=== PATIENT | female | born 1985 | race Caucasian/White ===

== ENCOUNTER 2019-09-20 03:58 | Emergency (ER) | payer BC, SELFPAY ==
[2019-09-20] MEDS ORDERED: Sodium Chloride 0.9% 1,000 ML IV ONE (04:12)
[2019-09-20] MEDS ORDERED: Ketorolac 30 MG/ML SDV IVPUSH ONE (04:35)
[2019-09-20] MEDS ORDERED: HYDROmorphone 1 MG/ML Syringe IVPUSH ONE ×2 (04:35→07:07)
[2019-09-20 04:51] LABS: ANION GAP 12.2 mmol/L (5-15); CHLORIDE,CL 102 mmol/L (98-115); SODIUM,NA 139 mmol/L (136-145)
[2019-09-20] MEDS ORDERED: Iopamidol 755 Mg/ML 100 ML Bottle IV ONE (04:58)
[2019-09-20] MEDS ORDERED: Sodium Chloride 0.9% 50 ML IV ONE (04:58)
--- NOTE | 2019-09-20 05:00 | EDM.PDOC ---
ED HPI GENERAL MEDICAL PROBLEM - General Chief Complaint: General Stated Complaint: Left flank pain Time Seen by Provider: 09/20/19 04:31 Source of Information: Reports: Patient History Limitations: Reports: No Limitations - History of Present Illness INITIAL COMMENTS - FREE TEXT/NARRATIVE: Patient presents with severe left abdominal and flank pain that started around 0230 this AM. She had a large emesis here in ER but isn't nauseated now; she thinks it was from the pain. She has had UTIs with kidney infections in the past but it has been a few years. She hasn't noticed dysuria but didn't usually get that with her UTIs either. No history of kidney stones. Left Flank Pain Score (Numeric/FACES): 3 - Related Data Allergies Allergy/AdvReac Type Severity Reaction Status Date / Time amoxicillin Allergy Rash Verified 09/20/19 04:36 Penicillins Allergy Rash Verified 09/20/19 04:36 Home Meds: Home Meds Levothyroxine 200 mcg PO ACBRK 05/06/13 [History] Diclofenac Sodium 75 mg PO BID 09/20/19 [History] Escitalopram Oxalate 10 mg PO DAILY 09/20/19 [History] Levothyroxine 75 mcg PO ACBRK 09/20/19 [History] Mupirocin Oint [Bactroban Oint] 1 applic TOP ASDIRECTED PRN 09/20/19 [History] buPROPion HCL [Bupropion Xl] 150 mg PO DAILY 09/20/19 [History] ED ROS GENERAL - Review of Systems Review Of Systems: See Below Constitutional: Denies: Fever, Chills, Malaise, Weakness HEENT: Denies: Ear Pain, Throat Pain, Vision Change Respiratory: Denies: Shortness of Breath, Cough Cardiovascular: Denies: Chest Pain, Lightheadedness, Syncope GI/Abdominal: Reports: Abdominal Pain, Vomiting (once, brief). Denies: Diarrhea , Nausea : Reports: Flank Pain. Denies: Dysuria Musculoskeletal: Denies: Neck Pain, Shoulder Pain, Arm Pain, Back Pain, Hand Pain Skin: Denies: Cyanosis, Jaundice, Mottled, Pallor, Diaphoresis Neurological: Denies: Confusion, Dizziness, Headache, Seizure, Syncope, Trouble Speaking, Difficulty Walking Psychiatric: Denies: Agitation, Anxiety, Confusion ED EXAM, GENERAL - Physical Exam Exam: See Below Exam Limited By: No Limitations General Appearance: Alert, WD/WN, No Apparent Distress Eye Exam: Bilateral Eye: EOMI, Normal Inspection, PERRL Ears: Normal External Exam, Hearing Grossly Normal Nose: Normal Inspection, No Blood Throat/Mouth: Normal Inspection, Normal Lips, Normal Voice, No Airway Compromise Head: Atraumatic, Normocephalic Neck: Normal Inspection, Full Range of Motion Respiratory/Chest: No Respiratory Distress, Lungs Clear, Normal Breath Sounds, No Accessory Muscle Use Cardiovascular: Regular Rate, Rhythm, No Murmur GI/Abdominal: Normal Bowel Sounds, Soft, No Organomegaly, Tender (generally across left abdomen without definite focal tenderness to palpation; also in left flank but not readily reproducible with palpation) Back Exam: Normal Inspection, Full Range of Motion, CVA Tenderness (L). No: CVA Tenderness (R) Extremities: Normal Inspection, Normal Range of Motion Neurological: Alert, Oriented, Normal Cognition, No Motor/Sensory Deficits Psychiatric: Normal Affect, Normal Mood Skin Exam: Warm, Dry, Intact, Normal Color, No Rash Course - Vital Signs Last Recorded V/S: Last Vital Signs Temp 96.2 F L 09/20/19 04:53 Pulse 93 09/20/19 04:53 Resp 20 09/20/19 04:53 BP 140/75 09/20/19 04:53 Pulse Ox 99 09/20/19 04:53 - Orders/Labs/Meds Orders: Active Orders 24 hr Category Date Time Status CULTURE URINE [RM] Stat Lab 09/20/19 04:11 Received Labs: Laboratory Tests 09/20/19 09/20/19 09/20/19 Range/Units 04:11 04:20 04:20 WBC 15.64 H (5.00-10.00) 10^3/uL RBC 5.04 (3.80-5.50) 10^6/uL Hgb 14.1 (12.0-16.0) g/dL Hct 43.2 (37.0-47.0) % MCV 85.7 D (82.0-92.0) fL MCH 28.0 (27.0-31.0) pg MCHC 32.6 (32.0-36.0) g/dL RDW 12.4 (11.5-14.5) % Plt Count 323 (150-400) 10^3/uL MPV 9.9 (7.4-10.4) fL Immature Gran % (Auto) 0.2 (0.0-5.0) % Neut % (Auto) 66.7 (50.0-70.0) % Lymph % (Auto) 24.6 (20.0-40.0) % [place] % (Auto) 6.3 (2.0-8.0) % Eos % (Auto) 2.0 (1.0-3.0) % Baso % (Auto) 0.2 (0.0-1.0) % Neut # (Auto) 10.45 H (2.50-7.00) 10^3/uL Lymph # (Auto) 3.84 (1.00-4.00) 10^3/uL [place] # (Auto) 0.98 H (0.10-0.80) 10^3/uL Eos # (Auto) 0.31 H (0.10-0.30) 10^3/uL Baso # (Auto) 0.03 (0.00-0.10) 10^3/uL Immature Gran # (Auto) 0.03 (0.00-0.50) 10^3/uL Sodium 139 (136-145) mmol/L Potassium 3.9 (3.3-5.3) mmol/L Chloride 102 (98-115) mmol/L Carbon Dioxide 28.7 (21.0-32.0) mmol/L Anion Gap 12.2 (5-15) mmol/L BUN 16 (6-25) mg/dL Creatinine 0.67 (0.51-1.17) mg/dL Est Cr Clr Drug Dosing TNP Estimated GFR (MDRD) > 60 mL/min Glucose 124 H (75 - 99) mg/dL Calcium 8.6 L (8.7-10.3) mg/dL Total Bilirubin 0.3 (0.2-1.0) mg/dL AST 14 L (15-37) U/L ALT 28 (12-78) U/L Alkaline Phosphatase 99 (46-116) IU/L Total Protein 7.4 (6.4-8.2) g/dL Albumin 3.54 (3.00-4.80) g/dL Specimen Type . Urine Color Light yellow (YELLOW) Urine Appearance Turbid H (CLEAR) Urine pH 6.5 (5.0-9.0) Ur Specific [place] >= 1.030 (1.005-1.030) Urine Protein >=300 H (NEGATIVE) mg/dL Urine Glucose (UA) Negative (NEGATIVE) mg/dL Urine Ketones Negative (NEGATIVE) mg/dL Urine Occult Blood Large H (NEGATIVE) Urine Nitrite Negative (NEGATIVE) Urine Bilirubin Negative (NEGATIVE) Urine Urobilinogen 0.2 (0.2-1.0) E.U./dL Ur Leukocyte Esterase Trace H (NEGATIVE) Urine RBC >100 H (0-5) /HPF Urine WBC 50-75 H (0-5) /HPF Ur Epithelial Cells Few /LPF Amorphous Sediment Few (0/HPF) /HPF Urine Bacteria Many H (NONE TO FEW) /HPF Meds: Medications Discontinued Medications Generic Name Dose Route Start Last Admin Trade Name Freq PRN Reason Stop Dose Admin Hydrocodone Bitart/Acetaminophen 2 tab 09/20/19 06:58 09/20/19 07:17 [place] 325-10 Mg PO 09/20/19 06:59 Not Given ONETIME ONE Hydromorphone HCl 1 mg 09/20/19 04:35 09/20/19 04:39 Dilaudid IVPUSH 09/20/19 04:36 1 mg ONETIME ONE Administration Hydromorphone HCl 1 mg 09/20/19 07:07 09/20/19 07:19 Dilaudid IVPUSH 09/20/19 07:08 1 mg ONETIME ONE Administration Sodium Chloride 1,000 mls @ 999 mls/hr 09/20/19 04:12 09/20/19 04:29 Normal Saline IV 09/20/19 05:12 999 mls/hr .BOLUS ONE Administration Sodium Chloride 50 mls @ 200 mls/min 09/20/19 04:58 09/20/19 05:38 Normal Saline IV 09/20/19 04:59 200 mls/min ONETIME ONE Administration Iopamidol 100 ml 09/20/19 04:58 09/20/19 05:38 Isovue-370 (76%) IV 09/20/19 04:59 75 ml ONETIME ONE Administration Ketorolac Tromethamine 30 mg 09/20/19 04:35 09/20/19 04:47 Toradol IVPUSH 09/20/19 04:36 30 mg ONETIME ONE Administration Levofloxacin 750 mg 09/20/19 06:58 09/20/19 07:15 Levaquin PO 09/20/19 06:59 750 mg ONETIME ONE Administration - Re-Assessments/Exams Free Text/Narrative Re-Assessment/Exam: 09/20/19 07:08 Patient says pain was originally 8-9/10 and came down to 2-3 after Dilaudid and Toradol. Now it is up to 4 again. WBC is elevated. CT shows "acute left pyelo-ureteritis" and nonobstructing left nephrolithiasis. Discussed findings and treatment plan with patient. Giving dose of Levaquin 750 mg now and Rx for 6 more days. Giving another dose of dilaudid now as well. Discharged in stable condition. Departure - Departure Time of Disposition: 07:04 Disposition: Home, Self-Care 01 Condition: Good Clinical Impression: Acute pyelonephritis - Discharge Information Referrals: Nava Mendoza MD [Primary Care Provider] - Forms: ED Department Discharge Additional Instructions: Drink 8 cups of water daily. Take the antibiotic as directed. You can use Ibuprofen 600 mg three times a day as needed for pain control but wait until this evening to start since you had Toradol in ER. Follow up with Dr. eCrda for recheck on Monday as scheduled. If significantly worsening recheck sooner. Sepsis Event Note - Focused Exam Vital Signs: Vital Signs Temp Pulse Resp BP Pulse Ox 09/20/19 04:53 96.2 F L 93 20 140/75 99 Date Exam was Performed: 09/20/19 Time Exam was Performed: 08:44 - My Orders Last 24 Hours: My Active Orders 09/20/19 04:11 CULTURE URINE [RM] Stat - Assessment/Plan Last 24 Hours: My Active Orders 09/20/19 04:11 CULTURE URINE [RM] Stat
[2019-09-20] MEDS ORDERED: Levofloxacin 500 MG Tab PO ONE (06:58)
[2019-09-20] MEDS ORDERED: Acetaminophen/HYDROcodone 325-10 MG Tab PO ONE (06:58)
--- NOTE | 2019-09-20 07:52 | CT ---
[id number] CT/CT Abdomen Pelvis WWO IV Exam: CT Abdomen Pelvis WWO IV Clinical Data: LEFT FLANK PAIN HEMATURIA COMPARISON: NO PREVIOUS SIMILAR EXAM IS AVAILABLE FINDINGS: A 5 mm lower pole left renal calculus is seen. There is no hydronephrosis The left ureter is slightly dilated There is an IUD in place The gallbladder has been removed. There is a fatty appearance of the liver. A 2.7 cm left-sided parapelvic cyst is seen There appears to be a small left ovarian cyst The pelvis otherwise shows no mass or adenopathy. The appendix is not well seen There is no evidence of appendicitis The aorta, adrenals, right kidney, pancreas, and spleen are unremarkable IMPRESSION: Left-sided nephrolithiasis No hydronephrosis Slight dilatation of left ureter Possibility of a recently passed calculus is considered Jose Mercedes MD 09/20/19 0751 Thank you for allowing us to participate in the care of your patient.
== END 2019-09-20 07:32 | disposition home or self-care (01) ==
LOC: KA.ED 03:58
DX: N10 Acute pyelonephritis (principal); Z88.1 Allergy status to other antibiotic agents; Z88.0 Allergy status to penicillin; Z79.899 Other long term (current) drug therapy
CPT/HCPCS: 36415; 74178; 80053; 81001; 85025; 87086; 96361; 96374; 96375; 96376; 99284; A9270; J1170; J1885; J7030; J7050; Q9967; 87077; 87186

== ENCOUNTER 2020-06-23 09:22 | Emergency (ER) | payer BC ==
--- NOTE | 2020-06-23 09:51 | EDM.PDOC ---
ED HPI GENERAL MEDICAL PROBLEM - General Chief Complaint: Back Pain or Injury Stated Complaint: LEFT LEG PAIN Time Seen by Provider: 06/23/20 09:40 Source of Information: Reports: Patient History Limitations: Reports: No Limitations - History of Present Illness INITIAL COMMENTS - FREE TEXT/NARRATIVE: 34 YO WF PRESENTS TO ER COMPLAINING OF LOW BACK PAIN WHICH BEGAN AFTER FALL 10 DAYS AGO. PT REPORTS SHE SLIPPED ON THE ICE AND LANDED ON HER BUTTOCKS. PT REPORTS PAIN WAS MANAGEABLE UNTIL THIS PAST WEEKEND WHEN IT BECAME MORE SEVERE. PT SAW CHIROPRACTOR YESTERDAY BUT STATES IT WAS AN INITIAL EVALUATION AND NOT MUCH TREATMENT WAS GIVEN. PT DENIES BOWEL OR BLADDER DYSFUNCTION, NO SADDLE ANESTHESIA. PT REPORTS PAIN RADIATES TO LEFT BUTTOCKS AND DOWN LEFT LEG. PT DENIES WEAKNESS, BUT STATES WHEN SHE SITS FOR LONG PERIODS OF TIME THE PAIN BECOMES MORE SEVERE AND SHE HAS TO GET UP TO GET ANY RELIEF. PT DENIES FEVER/CHILLS, NO DYSURIA OR URINARY FREQUENCY. Onset Date: 06/12/20 Duration: Day(s): (10) Location: Reports: Back, Lower Extremity, Left Quality: Reports: Ache Severity: Moderate Improves with: Reports: Rest Worsens with: Reports: Movement Associated Symptoms: Reports: No Other Symptoms. Denies: Rash, Weakness lower back pain Pain Score (Numeric/FACES): 10 - Related Data Allergies Allergy/AdvReac Type Severity Reaction Status Date / Time amoxicillin Allergy Rash Verified 06/23/20 09:50 Penicillins Allergy Rash Verified 06/23/20 09:50 Home Meds: Home Meds Levothyroxine 200 mcg PO ACBRK 05/06/13 [History] Diclofenac Sodium 75 mg PO BID 09/20/19 [History] Escitalopram Oxalate 10 mg PO DAILY 09/20/19 [History] Levothyroxine 75 mcg PO ACBRK 09/20/19 [History] Mupirocin Oint [Bactroban Oint] 1 applic TOP ASDIRECTED PRN 09/20/19 [History] buPROPion HCL [Bupropion Xl] 150 mg PO DAILY 09/20/19 [History] Cholecalciferol (Vitamin D3) [Vitamin D] 5,000 unit PO WEEKLY 06/23/20 [History] Cyclobenzaprine [Flexeril] 10 mg PO TID PRN #15 tab 06/23/20 [Rx] Hydrocodone/Acetaminophen [Hydrocodone-Acetamin 10-325 mg] 1 each PO Q6H PRN #12 tablet 06/23/20 [Rx] predniSONE [Prednisone] 20 mg PO DAILY #15 tablet 06/23/20 [Rx] Past Medical History Genitourinary History: Reports: UTI, Recurrent Psychiatric History: Reports: Anxiety, Depression Endocrine/Metabolic History: Reports: Hypothyroidism, Obesity/BMI 30+ Dermatologic History: Reports: Eczema - Past Surgical History GI Surgical History: Reports: Cholecystectomy Social & Family History - Caffeine Use Caffeine Use: Reports: Energy Drinks ED ROS GENERAL - Review of Systems Review Of Systems: See Below Constitutional: Reports: No Symptoms HEENT: Reports: No Symptoms Respiratory: Reports: No Symptoms Cardiovascular: Reports: No Symptoms Endocrine: Reports: No Symptoms GI/Abdominal: Reports: No Symptoms : Reports: No Symptoms Musculoskeletal: Reports: Back Pain, Leg Pain Skin: Reports: No Symptoms Neurological: Reports: Difficulty Walking Psychiatric: Reports: No Symptoms Hematologic/Lymphatic: Reports: No Symptoms Immunologic: Reports: No Symptoms ED EXAM,LOWER BACK PAIN/INJURY - Physical Exam Exam: See Below Exam Limited By: No Limitations General Appearance: Alert, WD/WN, Mild Distress Head: Atraumatic, Normocephalic Neck: Normal Inspection, Supple, Non-Tender, Full Range of Motion Respiratory/Chest: No Respiratory Distress, Lungs Clear, Normal Breath Sounds, No Accessory Muscle Use, Chest Non-Tender Cardiovascular: Normal Peripheral Pulses, Regular Rate, Rhythm, No Edema, No Gallop, No JVD, No Murmur, No Rub GI/Abdominal: Normal Bowel Sounds, Soft, Non-Tender, No Organomegaly, No Distention, No Abnormal Bruit, No Mass Back Exam: Muscle Spasm, Paraspinal Tenderness Extremities: Normal Inspection, Normal Range of Motion, No Pedal Edema, Normal Capillary Refill, Leg Pain Neurological: Alert, Normal Mood/Affect, Normal Dorsiflexion, CN II-XII Intact, Normal Plantar Flexion, Normal Gait, Normal Reflexes, No Motor/Sensory Deficits, Oriented x 3, Straight Leg Raise (L) Psychiatric: Normal Affect, Normal Mood Skin Exam: Warm, Dry, Intact, Normal Color, No Rash Lymphatic: No Adenopathy Course - Vital Signs Last Recorded V/S: Last Vital Signs Temp 96.9 F 06/23/20 09:30 Pulse 84 06/23/20 09:30 Resp 30 H 06/23/20 09:30 BP 120/85 06/23/20 09:30 Pulse Ox 97 06/23/20 09:30 - Orders/Labs/Meds Labs: Laboratory Tests 06/23/20 06/23/20 Range/Units 09:42 09:42 Specimen Type Urincc Urine Color Yellow (YELLOW) Urine Appearance Clear (CLEAR) Urine pH 8.0 (5.0-9.0) Ur Specific [place] 1.015 (1.005-1.030) Urine Protein Negative (NEGATIVE) mg/dL Urine Glucose (UA) Negative (NEGATIVE) mg/dL Urine Ketones Negative (NEGATIVE) mg/dL Urine Occult Blood Negative (NEGATIVE) Urine Nitrite Negative (NEGATIVE) Urine Bilirubin Negative (NEGATIVE) Urine Urobilinogen 0.2 (0.2-1.0) E.U./dL Ur Leukocyte Esterase Negative (NEGATIVE) Urine HCG, Qual Negative (NEGATIVE) - Radiology Interpretation Free Text/Narrative:: lumbar spine-NAD - Re-Assessments/Exams Free Text/Narrative Re-Assessment/Exam: 06/23/20 11:16 PT REPORTS IMPROVEMENT AFTER PAIN MEDICATION. PT INSTRUCTED TO FOLLOW UP IN CLINIC FOR RECHECK IF NO IMPROVEMENT NEXT 3-5 DAYS. RECOMMENDING PHYSICAL THERAPY AND POSSIBLE ADDITIONAL IMAGING NEEDED. Departure - Departure Time of Disposition: 11:17 Disposition: Home, Self-Care 01 Condition: Good Clinical Impression: Sciatica Qualifiers: Laterality: left Qualified Code(s): M54.32 - Sciatica, left side - Discharge Information Prescriptions: Cyclobenzaprine [Flexeril] 10 mg PO TID PRN #15 tab PRN Reason: Muscle Spasm Hydrocodone/Acetaminophen [Hydrocodone-Acetamin 10-325 mg] 1 each PO Q6H PRN #12 tablet PRN Reason: Pain predniSONE [Prednisone] 20 mg PO DAILY #15 tablet Instructions: Sciatica Referrals: Nava Mendoza MD [Primary Care Provider] - Forms: ED Department Discharge Additional Instructions: 1. DISCHARGE HOME 2. HYDROCODONE 10/325 #12 1 TABLET EVERY 6 HOURS NEEDED FOR PAIN 3. FLEXERIL 10MG #15 1 TABLET EVERY 8 HOURS NEEDED FOR MUSCLE SPASMS 4. PREDNISONE (3) 20MG TABLETS DAILY WITH FOOD X 5 DAYS 5. FOLLOW UP WITH PCP IF NO IMPROVEMENT NEXT 5-7 DAYS 6. RETURN TO ER FOR WORSENING SYMPTOMS Sepsis Event Note (ED) - Evaluation Sepsis Screening Result: No Definite Risk - Focused Exam Vital Signs: Vital Signs Temp Pulse Resp BP Pulse Ox 06/23/20 09:30 96.9 F 84 30 H 120/85 97 - Assessment/Plan Assessment:: 1. ACUTE SCIATICA Plan: 1. DISCHARGE HOME 2. HYDROCODONE 10/325 #12 1 TABLET EVERY 6 HOURS NEEDED FOR PAIN 3. FLEXERIL 10MG #15 1 TABLET EVERY 8 HOURS NEEDED FOR MUSCLE SPASMS 4. PREDNISONE (3) 20MG TABLETS DAILY WITH FOOD X 5 DAYS 5. FOLLOW UP WITH PCP IF NO IMPROVEMENT NEXT 5-7 DAYS 6. RETURN TO ER FOR WORSENING SYMPTOMS
[2020-06-23] MEDS ORDERED: Ketorolac 30 MG/ML SDV IVPUSH ONE (09:57)
[2020-06-23] MEDS ORDERED: methylPREDNISolone Sodium Succinate 125 MG/2 ML SDV IVPUSH ONE (09:57)
--- NOTE | 2020-06-23 10:14 | CR ---
[id number] RAD/RAD Lumbar Spine 2-3V EXAM: RAD Lumbar Spine 2-3V INDICATION: LOWER BACK INJURY. COMPARISON: None. DISCUSSION: There is slight convex left curvature centered in the midlumbar spine. The vertebral bodies are otherwise normal in height and alignment with no fracture identified. Mild lumbar spondylosis is most significant at L5-S1. Transitional anatomy at the lumbosacral junction. Intrauterine device projecting over the pelvis. IMPRESSION: 1. No acute findings. Montana Loera MD 06/23/20 1012 Thank you for allowing us to participate in the care of your patient.
[2020-06-23] MEDS ORDERED: HYDROmorphone 1 MG/ML Syringe IVPUSH ONE (10:35)
== END 2020-06-23 11:26 | disposition home or self-care (01) ==
LOC: KA.ED 09:22
DX: M54.42 Lumbago with sciatica, left side (principal); E03.9 Hypothyroidism, unspecified; E66.9 Obesity, unspecified; Z68.41 Body mass index [BMI] 40.0-44.9, adult; Z88.0 Allergy status to penicillin; Z79.899 Other long term (current) drug therapy
CPT/HCPCS: 72100; 81003; 81025; 96374; 96375; 99283; 99283-25; J1170; J1885; J2930; J3360

== ENCOUNTER 2020-06-26 10:36 | Emergency (ER) | payer BC ==
[2020-06-26] MEDS ORDERED: Ketorolac 60 MG/2 ML SDV ONE (11:02)
[2020-06-26] MEDS ORDERED: Ketorolac 60 MG/2 ML SDV IM ONE (11:08)
[2020-06-26] MEDS ORDERED: HYDROmorphone 1 MG/ML Syringe IVPUSH ONE ×2 (11:36→11:44)
[2020-06-26] MEDS ORDERED: Ondansetron 4 MG/2 ML SDV IVPUSH ONE (11:51)
[2020-06-26] MEDS ORDERED: Ondansetron 4 MG/2 ML SDV ONE (11:54)
--- NOTE | 2020-06-26 11:54 | EDM.PDOC ---
ED HPI GENERAL MEDICAL PROBLEM - General Chief Complaint: Back Pain or Injury Stated Complaint: PROBLEMS WITH LEG Time Seen by Provider: 06/26/20 10:45 Source of Information: Reports: Patient, Family () History Limitations: Reports: No Limitations - History of Present Illness INITIAL COMMENTS - FREE TEXT/NARRATIVE: 34-year-old female presents to the emergency room with intractable low back and left radicular leg pain. She was seen in the emergency room this past Monday for the same occurrence. She has not had relief with NSAIDs, prednisone, oral pain medication which includes hydrocodone. She has been taken a muscle relaxer. She is seen a chiropractor 3 times since the onset of her symptoms 1 week ago last . Patient reports that she has fallen on the ice and then her symptoms began soon after. Her pain is not controlled. She was seen by her chiropractor this morning and recommended that she return back to the emergency room for further work-up and evaluation. She denies any saddle paresthesias or loss of bowel or bladder control. She complains of the pain in the left leg down the L5 dermatome. Rates her pain a 10 out of 10. Onset: Gradual Onset Date: 06/18/20 Duration: Day(s):, Getting Worse Location: Reports: Lower Extremity, Left Quality: Reports: Burning, Stabbing Severity: Severe Improves with: Reports: None Worsens with: Reports: Movement Associated Symptoms: Reports: Weakness (left leg) Treatments VALVE LAPPER: Reports: Acetaminophen, NSAIDS, Other Medication(s) (steroids,flexeril, Hydrocodone) Left Lower Back Pain Score (Numeric/FACES): 10 - Related Data Allergies Allergy/AdvReac Type Severity Reaction Status Date / Time amoxicillin Allergy Rash Verified 06/26/20 10:45 Penicillins Allergy Rash Verified 06/26/20 10:45 Home Meds: Home Meds Levothyroxine 200 mcg PO ACBRK 05/06/13 [History] Diclofenac Sodium 75 mg PO BID 09/20/19 [History] Escitalopram Oxalate 10 mg PO DAILY 09/20/19 [History] Levothyroxine 75 mcg PO ACBRK 09/20/19 [History] Mupirocin Oint [Bactroban Oint] 1 applic TOP ASDIRECTED PRN 09/20/19 [History] buPROPion HCL [Bupropion Xl] 150 mg PO DAILY 09/20/19 [History] Cholecalciferol (Vitamin D3) [Vitamin D] 5,000 unit PO WEEKLY 06/23/20 [History] Cyclobenzaprine [Flexeril] 10 mg PO TID PRN #15 tab 06/23/20 [Rx] Hydrocodone/Acetaminophen [Hydrocodone-Acetamin 10-325 mg] 1 each PO Q6H PRN #12 tablet 06/23/20 [Rx] predniSONE [Prednisone] 20 mg PO DAILY #15 tablet 06/23/20 [Rx] Past Medical History Genitourinary History: Reports: UTI, Recurrent Musculoskeletal History: Reports: Arthritis, Other (See Below) Other Musculoskeletal History: Arthritis in the knees Psychiatric History: Reports: Anxiety, Depression Endocrine/Metabolic History: Reports: Hypothyroidism, Obesity/BMI 30+, Vitamin D Deficiency Dermatologic History: Reports: Eczema - Past Surgical History GI Surgical History: Reports: Cholecystectomy Social & Family History - Family History Family Medical History: No Pertinent Family History - Tobacco Use Tobacco Use Status *Q: Never Tobacco User - Caffeine Use Caffeine Use: Reports: None - Recreational Drug Use Recreational Drug Use: No ED ROS GENERAL - Review of Systems Review Of Systems: See Below Constitutional: Reports: No Symptoms HEENT: Reports: No Symptoms Respiratory: Reports: No Symptoms Cardiovascular: Reports: No Symptoms Endocrine: Reports: No Symptoms GI/Abdominal: Reports: No Symptoms : Reports: No Symptoms Musculoskeletal: Reports: Back Pain, Leg Pain (left L5 radicular) Skin: Reports: No Symptoms Neurological: Reports: Paresthesia, Difficulty Walking, Weakness (left leg), Gait Disturbance Psychiatric: Reports: Anxiety, Depression Hematologic/Lymphatic: Reports: No Symptoms Immunologic: Reports: No Symptoms ED EXAM,LOWER BACK PAIN/INJURY - Physical Exam Exam: See Below Exam Limited By: No Limitations General Appearance: Alert, Severe Distress, Obese Ears: Hearing Grossly Normal Nose: Normal Inspection Throat/Mouth: Normal Voice, No Airway Compromise Head: Atraumatic, Normocephalic Neck: Normal Inspection, Supple, Non-Tender Respiratory/Chest: No Respiratory Distress Back Exam: Muscle Spasm, Paraspinal Tenderness Extremities: Normal Inspection, Leg Pain (left leg) Neurological: Alert, Normal Dorsiflexion, CN II-XII Intact, Normal Plantar Flexion, Normal Reflexes, Oriented x 3, Extensor Response to Pain, Abnormal Sensation (left L5 dermatome), Straight Leg Raise (L), Straight Leg Raise (R) (contralateral). No: Babinski, Saddle Anesthesia DTR - Lower Extremities: 1+: Ankle (R), Ankle (L), 2+: Knee (R), Knee (L) Psychiatric: Tearful Skin Exam: Warm, Dry, Intact, Normal Color, No Rash Lymphatic: No Adenopathy Course - Vital Signs Last Recorded V/S: Last Vital Signs Temp 96.5 F L 06/26/20 10:47 Pulse 91 06/26/20 10:47 Resp 36 H 06/26/20 10:47 BP 126/71 06/26/20 10:47 Pulse Ox 99 06/26/20 10:47 - Orders/Labs/Meds Orders: Active Orders 24 hr Category Date Time Status Peripheral IV Care [RC] . DIRECTED Care 06/26/20 11:58 Active Sodium Chloride 0.9% [Saline Flush] Med 06/26/20 11:58 Active 10 ml FLUSH Q8HR PRN Peripheral IV Insertion Adult [OM.PC] Routine Oth 06/26/20 11:58 Ordered - Re-Assessments/Exams Free Text/Narrative Re-Assessment/Exam: Patient was given 30 mg IM Toradol without relief of her symptoms. IV was placed in her left wrist and 1 mg of IV Dilaudid was given. IV Zofran 4 mg for nausea also given Free Text/Narrative Re-Assessment/Exam: 06/26/20 12:41 Currently is rating her pain a 7 out of 10 at rest if she does not move. She will be given another 1 mg of IV Dilaudid. Departure - Departure Time of Disposition: 12:42 Disposition: DC/Tfer to Acute Hospital 02 Condition: Fair Clinical Impression: Intractable back pain, Radicular pain of left lower extremity - Discharge Information *PRESCRIPTION DRUG MONITORING PROGRAM REVIEWED*: Yes *COPY OF PRESCRIPTION DRUG MONITORING REPORT IN PATIENT DEJA: Yes Instructions: Pinched Nerve, Radicular Pain, Acute Back Pain, Adult Referrals: Nava Mendoza MD [Primary Care Provider] - Forms: ED Department Discharge Sepsis Event Note (ED) - Evaluation Sepsis Screening Result: No Definite Risk - Focused Exam Vital Signs: Vital Signs Temp Pulse Resp BP Pulse Ox 06/26/20 10:47 96.5 F L 91 36 H 126/71 99 - My Orders Last 24 Hours: My Active Orders 06/26/20 11:58 Peripheral IV Care [RC] . DIRECTED Sodium Chloride 0.9% [Saline Flush] 10 ml FLUSH Q8HR PRN Peripheral IV Insertion Adult [OM.PC] Routine - Assessment/Plan Last 24 Hours: My Active Orders 06/26/20 11:58 Peripheral IV Care [RC] . DIRECTED Sodium Chloride 0.9% [Saline Flush] 10 ml FLUSH Q8HR PRN Peripheral IV Insertion Adult [OM.PC] Routine Assessment:: Intractable low back and left radicular leg pain Plan: Patient will require IV pain medication for intractable low back and left radicular leg pain. She will also need an MRI of her lumbar spine rule out acute disc herniation. I have discussed transfer to [facility] in [place] where her pain can be controlled and MRI services available. She will need to be transferred by ground ambulance. I discussed this with hospitalist at [facility] whom are willing to accept patient transfer. She will be a direct admit to the floor.
[2020-06-26] MEDS ORDERED: Sodium Chloride 0.9% 10 ML Syringe FLUSH PRN (11:58)
== END 2020-06-26 13:10 ==
LOC: KA.ED 10:36
DX: M54.5 Low back pain (principal); M54.10 Radiculopathy, site unspecified; E03.9 Hypothyroidism, unspecified; E66.9 Obesity, unspecified; Z88.0 Allergy status to penicillin; Z79.899 Other long term (current) drug therapy
CPT/HCPCS: 96372; 96374; 96375; 96376; 99283; 99284-25; J1170; J1885; J2405

== ENCOUNTER 2020-07-06 09:20 | Emergency (ER) | payer BC ==
--- NOTE | 2020-07-06 10:04 | EDM.PDOC ---
ED HPI GENERAL MEDICAL PROBLEM - General Chief Complaint: General Stated Complaint: HEADACHE Time Seen by Provider: 07/06/20 09:41 Source of Information: Reports: Patient History Limitations: Reports: No Limitations - History of Present Illness INITIAL COMMENTS - FREE TEXT/NARRATIVE: Patient presents with headache that started 4 days ago and has been steadily worsening. She rates it 7/10 now. Nausea but no vomiting. Occasionally blurry vision but no other vision changes. Seven days ago she had a L4 discectomy surgery due to bulging disc with LLE weakness. She says the LLE weakness has improved some but isn't gone yet. She drinks 8+ cups of water daily. No recent fever. No dysuria but urine smell has been worse than usual lately. Headache Pain Score (Numeric/FACES): 7 - Related Data Allergies Allergy/AdvReac Type Severity Reaction Status Date / Time amoxicillin Allergy Rash Verified 07/06/20 10:12 Penicillins Allergy Rash Verified 07/06/20 10:12 Home Meds: Home Meds Levothyroxine 200 mcg PO ACBRK 05/06/13 [History] Diclofenac Sodium 75 mg PO BID 09/20/19 [History] Escitalopram Oxalate 10 mg PO DAILY 09/20/19 [History] Levothyroxine 75 mcg PO ACBRK 09/20/19 [History] Mupirocin Oint [Bactroban Oint] 1 applic TOP ASDIRECTED PRN 09/20/19 [History] buPROPion HCL [Bupropion Xl] 150 mg PO DAILY 09/20/19 [History] Cholecalciferol (Vitamin D3) [Vitamin D] 5,000 unit PO WEEKLY 06/23/20 [History] Cyclobenzaprine [Flexeril] 10 mg PO TID PRN #15 tab 06/23/20 [Rx] Hydrocodone/Acetaminophen [Hydrocodone-Acetamin 10-325 mg] 1 each PO Q6H PRN #12 tablet 06/23/20 [Rx] predniSONE [Prednisone] 20 mg PO DAILY #15 tablet 06/23/20 [Rx] Past Medical History Genitourinary History: Reports: UTI, Recurrent Musculoskeletal History: Reports: Arthritis, Other (See Below) Other Musculoskeletal History: Arthritis in the knees Psychiatric History: Reports: Anxiety, Depression Endocrine/Metabolic History: Reports: Hypothyroidism, Obesity/BMI 30+, Vitamin D Deficiency Dermatologic History: Reports: Eczema - Past Surgical History GI Surgical History: Reports: Cholecystectomy Social & Family History - Family History Family Medical History: No Pertinent Family History - Tobacco Use Tobacco Use Status *Q: Never Tobacco User - Caffeine Use Caffeine Use: Reports: None - Recreational Drug Use Recreational Drug Use: No ED ROS GENERAL - Review of Systems Review Of Systems: See Below Constitutional: Reports: Decreased Appetite (couple days). Denies: Fever, Chills, Malaise, Weakness HEENT: Denies: Ear Pain, Throat Pain Respiratory: Denies: Shortness of Breath, Cough Cardiovascular: Reports: Lightheadedness (sometimes with standing). Denies: Chest Pain, Syncope Endocrine: Denies: Fatigue GI/Abdominal: Reports: Nausea. Denies: Abdominal Pain, Vomiting : Reports: Other (she gets UTIs occasionally that usually manifest with flank pain by the time she gets it diagnosed). Denies: Dysuria, Flank Pain Musculoskeletal: Denies: Neck Pain, Shoulder Pain, Arm Pain Skin: Denies: Cyanosis, Jaundice, Mottled, Pallor, Diaphoresis Neurological: Reports: Headache. Denies: Confusion, Dizziness, Seizure, Syncope, Trouble Speaking Psychiatric: Denies: Agitation, Anxiety, Confusion ED EXAM, GENERAL - Physical Exam Exam: See Below Exam Limited By: No Limitations General Appearance: Alert, WD/WN, No Apparent Distress Eye Exam: Bilateral Eye: EOMI, Normal Inspection, PERRL Ears: Normal External Exam, Hearing Grossly Normal Nose: Normal Inspection, No Blood Throat/Mouth: Normal Inspection, Normal Lips, Normal Voice, No Airway Compromise Head: Atraumatic, Normocephalic Neck: Normal Inspection, Full Range of Motion Respiratory/Chest: No Respiratory Distress, Lungs Clear, Normal Breath Sounds, No Accessory Muscle Use Cardiovascular: Regular Rate, Rhythm, No Edema, No Murmur GI/Abdominal: Normal Bowel Sounds, Soft, No Organomegaly, No Distention, No Abnormal Bruit, Tender (suprapubic and LLQ) Back Exam: Normal Inspection, Full Range of Motion. No: CVA Tenderness (L), CVA Tenderness (R) Extremities: Normal Inspection, Normal Range of Motion Neurological: Alert, Oriented, CN II-XII Intact, Normal Cognition, No Motor/Sensory Deficits Psychiatric: Normal Affect, Normal Mood Skin Exam: Warm, Dry, Intact, Normal Color, No Rash Course - Vital Signs Last Recorded V/S: Last Vital Signs Temp 96.4 F L 07/06/20 09:34 Pulse 91 07/06/20 10:01 Resp 16 07/06/20 10:01 BP 111/72 07/06/20 10:01 Pulse Ox 93 L 07/06/20 10:01 - Orders/Labs/Meds Orders: Active Orders 24 hr Category Date Time Status CULTURE URINE [MREF] Stat Lab 07/06/20 10:05 Received Labs: Laboratory Tests 07/06/20 Range/Units 10:05 Specimen Type Urinblad Urine Color Dark yellow H (YELLOW) Urine Appearance Turbid H (CLEAR) Urine pH 6.0 (5.0-9.0) Ur Specific [place] 1.020 (1.005-1.030) Urine Protein 100 H (NEGATIVE) mg/dL Urine Glucose (UA) Negative (NEGATIVE) mg/dL Urine Ketones 40 H (NEGATIVE) mg/dL Urine Occult Blood Small H (NEGATIVE) Urine Nitrite Positive H (NEGATIVE) Urine Bilirubin Negative (NEGATIVE) Urine Urobilinogen 0.2 (0.2-1.0) E.U./dL Ur Leukocyte Esterase Small H (NEGATIVE) Urine RBC 5-10 H (0-5) /HPF Urine WBC Packed (0-5) /HPF Ur Epithelial Cells Moderate H /LPF Urine Bacteria Many H (NONE TO FEW) /HPF - Re-Assessments/Exams Free Text/Narrative Re-Assessment/Exam: 07/06/20 10:56 I discussed case with Dr. Desir who feels it is fairly unlikely to be a CSF leak but says they can evaluate her there and keep her flat on her back until her headache is gone for 24 hours; unless she wants to try this at home. 07/06/20 11:07 I discussed findings and options with patient and her mother. She tells me that her headache is definitely worse when upright and much better when she lies down. After discussion she wants to go to [place] for treatment and care. I informed the floor nurse there that she has a UTI which wasn't known yet when I discussed case with Dr. Desir. Patient stable at discharge. 07/06/20 11:15 I advised NPO except a little water to drink, until she is at [facility]. Departure - Departure Time of Disposition: 11:01 Disposition: DC/Tfer to Acute Hospital 02 Condition: Good Clinical Impression: Postural headache, Status post discectomy UTI (urinary tract infection) Qualifiers: Urinary tract infection type: acute cystitis Hematuria presence: without hematuria Qualified Code(s): N30.00 - Acute cystitis without hematuria - Discharge Information Referrals: Nava Mendoza MD [Primary Care Provider] - Forms: ED Department Discharge Additional Instructions: Go directly to [facility] in [place] for direct admit. Lie as flat as possible in the vehicle during the transfer there. Sepsis Event Note (ED) - Evaluation Sepsis Screening Result: No Definite Risk - Focused Exam Vital Signs: Vital Signs Temp Pulse Resp BP Pulse Ox 07/06/20 10:01 91 16 111/72 93 L 07/06/20 09:34 96.4 F L 82 16 109/80 97 - My Orders Last 24 Hours: My Active Orders 07/06/20 10:05 CULTURE URINE [MREF] Stat - Assessment/Plan Last 24 Hours: My Active Orders 07/06/20 10:05 CULTURE URINE [MREF] Stat
== END 2020-07-06 11:30 ==
LOC: KA.ED 09:20
DX: R51.9 Headache, unspecified (principal); N30.00 Acute cystitis without hematuria; M19.90 Unspecified osteoarthritis, unspecified site; E03.9 Hypothyroidism, unspecified; E66.9 Obesity, unspecified; Z68.42 Body mass index [BMI] 45.0-49.9, adult; Z88.0 Allergy status to penicillin; Z79.899 Other long term (current) drug therapy; Z98.890 Other specified postprocedural states
CPT/HCPCS: 81001; 87086; 87088; 87186; 99283; 99285